=== PATIENT | male | born 1955 | race Caucasian/White ===

== ENCOUNTER 2021-07-23 11:50 | Outpatient (CLI) | payer MEDICARE, OTHER ==
[2021-07-24 14:44] LABS: SARS-CoV-2 PCR by NAA Not Detected (NotDetected)
== END 2021-07-23 11:51 | disposition home or self-care (01) ==
LOC: CSHLAB 11:50
PROVIDERS: ATTEND Neurological Surgery
DX: Z20.822 Contact with and (suspected) exposure to COVID-19 (principal)
CPT/HCPCS: U0003; U0005